=== PATIENT | male | born 1955 | race Caucasian/White ===

== ENCOUNTER 2021-05-06 20:44 | Emergency (ER) | payer MEDICARE, SELFPAY ==
--- NOTE | ~2021-05-06 | US_ITS ---
US scrotum doppler INDICATION: Right testicular pain and swelling for 3 days TECHNIQUE: Testicular sonogram utilizing grayscale and color Doppler FINDINGS: The testes are normal in size and appearance. No focal lesions are seen. The right testes measures 4.4 x 3.7 x 3 centimeters, and the left testis measures 4 x 2.7 x 2.1 cm. There is slightly increased flow in the right testicle and epididymis. There is a right hydrocele. There are bilateral testicular cysts. No evidence for torsion. IMPRESSION: 1. Asymmetric enlargement with increased vascularity of the right testicle and epididymis, consisten t with epididymoorchitis. Clinically correlate. Reviewed, dictated and finalized at location B. IMPRESSION: 1. Asymmetric enlargement with increased vascularity of the right testicle and epididymis, consistent with epididymoorchitis. Clinically correlate.
[2021-05-06 21:01] VITALS: BP 159/92; PULSE 94; RESP 16; TEMP 38; O2SAT 95
[2021-05-06 21:29] LABS: Basophils Absolute Auto 0.1 K/mm3 (0.0-0.1); Basophils Percent Auto 0.3 % (0.2-1.2); Eosinophils Absolute Auto 0.2 K/mm3 (0-0.3); Eosinophils Percent Auto 1.3 % (0-4.4); Hematocrit 46.9 % (42.0-52.0); Immature Granulocyte Absolute 0.08 K/mm3 (0.00-0.031); Immature Granulocyte Percent A 0.5 % (0-0.5); Lymphocytes Absolute Auto 1.08 K/mm3 (0.9-3.2); Lymphocytes Percent Auto 6.9 % (18.3-44.2); Mean Corpuscular Hemoglobin 27.7 pg (26-34); Mean Corpuscular Volume 86.7 fl (80-100); Monocytes Absolute Auto 1.3 K/mm3 (0.1-0.6); Monocytes Percent Auto 8.4 % (2.6-8.5); Neutrophils Absolute Auto 12.9 K/mm3 (1.3-6.7); Neutrophils Percent Auto 82.6 % (45.5-73.1); Platelet Count Result 225 k/mm3 (150-375); Red Blood Count 5.41 M/mm3 (4.6-6.20); Red Cell Distribution Width 13.9 % (11.5-14.5); White Blood Count 15.6 K/mm3 (4.5-10.0)
[2021-05-06 21:39] LABS: Anion Gap 12 mmol/L (8-16); Blood Urea Nitrogen 21 mg/dL (9-20); Calcium 10.1 mg/dL (8.4-10.2); Carbon Dioxide 26 mmol/L (22-30); Chloride 103 mmol/L (98-107); Estimated CRCL calculation 102 ml/min; Estimated Glomerular Filt Rate > 60; Glucose 115 mg/dL (75-110); Potassium 3.9 mmol/L (3.4-5.0); Sodium 141 mmol/L (137-145)
--- NOTE | 2021-05-06 22:39 | PC.NURSE ---
pt came to intake desk, asked for update. this rn let them know that we currently dont have any open rooms but will get them back as soon as we can.
[2021-05-06 23:07] VITALS: BP 154/88; PULSE 88; RESP 18; TEMP 37.6; O2SAT 97
[2021-05-06 23:08] VITALS: BP 154/88; O2SAT 96
--- NOTE | 2021-05-06 23:14 | PC.NURSE ---
Urinal at bedside, pt refusing straight catheterization at this time.
--- NOTE | 2021-05-06 23:18 | ED.GENADULT ---
HPI - General Adult General Chief complaint: Unspecified Stated complaint: R testicle pain Time Seen by Provider: 05/06/21 23:14 Source: RN notes reviewed History of Present Illness HPI narrative: Patient presents to emergency department from home for right-sided testicular pain. Patient states pain began Friday night. Pain is located in the right testicle and the patient states it is swollen to palpation but is not been able to visualize it pain radiates in the right lower quadrant in the right lower back states pain is worse with palpation of the testicle he notes a low-grade fever today he denies taking any Tylenol or ibuprofen today. States he has had associated nausea vomiting Related Data Home Medications Medication Instructions Recorded Confirmed modafinil 05/06/21 Allergies Allergy/AdvReac Type Severity Reaction Status Date / Time budesonide Allergy Unknown Unknown Verified 05/06/21 23:10 Review of Systems Review of Systems: Narrative: Gen.: Denies fevers or chills ENT: Denies congestion Respiratory: Denies shortness of breath or cough CV: Denies chest pain or palpitations GI: Reports abdominal pain and nausea and vomiting denies diarrhea see HPI Musculoskeletal: Denies back pain or muscle pain Neuro: Denies numbness, tingling, weakness or focal weakness Skin: Denies rash Except as documented, all other systems reviewed and negative FOR[facility] Past Medical History Medical History (Updated 05/07/21 @ 02:12 by Rehan Le DO) Patient denies significant medical history Family History Family History (Updated 09/08/18 @ 10:32 by DOCTOR UNKNOWN) Father Malignant neoplasm of prostate Family history of diabetes mellitus in first degree relative Family history of malignant neoplasm of bone Diabetes mellitus Mother Family history of diabetes mellitus in first degree relative Diabetes mellitus Family history of tremor Sibling Family history of heart disease in male family member before age 55 Social History Social History Smoking status: Former smoker Smoking end date: 12/01/74 Alcohol intake: current Exam Narrative: Exam Narrative: APPEARANCE: No acute distress, nontoxic, resting in bed EYES: EOMI HEENT: Normocephalic, atraumatic, OMM RESPIRATORY: No respiratory distress Clear to auscultation bilaterally with no rhonchi wheezing or rales. CARDIOVASCULAR: Regular rate and rhythm without murmurs rubs or gallops. ABDOMINAL: Soft, nontender, nondistended, no rebound or guarding : No external skin lesions no phimosis or paraphimosis, the right side the scrotum is diffusely swollen with the right testicle tender palpation no tenderness over the left testicle no overlying erythema MUSCULOSKELETAl: Moves all extremities. No clubbing, cyanosis or edema. NEURO: Awake and alert. Following commands, speech normal, no focal deficits SKIN:: Warm, dry. No rashes lesions or abrasions PSYCHIATRIC: Normal affect/mood, Course Course Emergency Course: Discussed with Dr. Maynard for urology presentation work-up. At this time feels patient may be discharged follow-up as an outpatient recommends patient be started on Levaquin 500 mg twice a day for 10 days as well as given a dose of IM Rocephin Discussed with patient results of workup and diagnosis. Discussed need for follow-up with primary care, proper use of medication, and reasons to return to the emergency department. Patient understands and agrees to current treatment plan Vital Signs Vital signs: Vital Signs Temperature 100.4 F H 05/06/21 21:01 Pulse Rate 94 05/06/21 21:01 Respiratory Rate 16 05/06/21 21:01 Blood Pressure 159/92 H 05/06/21 21:01 Pulse Oximetry 95 05/06/21 21:01 Temperature 99.6 F 05/07/21 01:36 Pulse Rate 88 05/06/21 23:07 Respiratory Rate 18 05/06/21 23:07 Blood Pressure 151/84 H 05/07/21 01:16 Pulse Oximetry 95 05/07/21 01:16 M
[2021-05-06] MEDS: IBUPROFEN 600 MG TABLET PO (23:24)
[2021-05-06 23:32] VITALS: BP 145/82; O2SAT 96
[2021-05-06 23:53] LABS: Add Urine Microscopic? YES; Appearance Urine Clear (Clear); Bacteria Urine Trace /hpf; Bilirubin Urine Negative (Negative); Blood Urine Negative (Negative); Color Urine Yellow (Yellow); Glucose Urine UA Negative (Negative); Ketones Urine Negative (Negative); Leukocyte Esterase Ur 2+ LEU/UL (Negative); Mucus Urine Few /lpf; Nitrate Urine Positive (Negative); Protein Urine 1+ mg/dL (Negative); Specific Grav Ur 1.024 (1.001-1.035); Squamous Epithelial Cell Urine Rare /hpf (Few); Urobilinogen Urine Negative mg/dL (<2.0); WBC Urine 31-50 /hpf
[2021-05-07 00:33] VITALS: BP 140/76; O2SAT 98
[2021-05-07 01:01] VITALS: BP 153/84; O2SAT 95
[2021-05-07 01:16] VITALS: BP 151/84; O2SAT 95
[2021-05-07] MEDS: cefTRIAXone 1 GM VIAL 0.5 GM IM (01:29)
[2021-05-07] MEDS: LIDOCAINE HCL 1% LOCAL INJ 20 ML VIAL 2.1 ML XX (01:30)
[2021-05-07 01:36] VITALS: TEMP 37.6
[2021-05-07] MEDS: ACETAMINOPHEN 500 MG TABLET 1000 MG PO (01:52)
[2021-05-07 02:07] LABS: Lactic Acid Reflex 1.1 mmol/L (0.7-2.1)
[2021-05-07 02:40] VITALS: BP 130/73; PULSE 75; RESP 18; TEMP 37.2; O2SAT 98
== END 2021-05-07 02:42 | disposition home or self-care (01) ==
PROVIDERS: Emergency Provider Emergency Medicine
DX: N45.2 Orchitis (principal); Z87.891 Personal history of nicotine dependence
CPT/HCPCS: 36415; 76870; 80048; 81001; 83605; 85025; 87077; 87086; 87088; 87186; 93976; 96372; 99284; A9270; J0696